=== PATIENT | male | born 2000 | race Caucasian/White ===

== ENCOUNTER → 2021-04-30 09:38 | Outpatient (BNVA) | payer OTHER, SELFPAY | PROVIDERS: Visit Provider Nurse Practitioner Family | DX: Z20.822 Contact with and (suspected) exposure to COVID-19 (principal) | CPT/HCPCS: 87635 ==

== ENCOUNTER → 2021-05-30 16:28 | Outpatient (BNVA) | payer OTHER, SELFPAY | PROVIDERS: Visit Provider Emergency Medicine | DX: Z20.822 Contact with and (suspected) exposure to COVID-19 (principal) | CPT/HCPCS: 87635 ==

== ENCOUNTER 2021-08-06 23:14 | Emergency (ER) | payer SELFPAY ==
[2021-08-06 23:19] VITALS: BP 115/80; PULSE 74; RESP 18; TEMP 36.5; O2SAT 100; BMI 21.6
--- NOTE | 2021-08-06 23:19 | W.ED.DENTAL ---
HPI - Dental/Oral General: Chief complaint: Dental/Oral Stated complaint: tooth pain Time Seen by Provider: 08/06/21 23:18 History of Present Illness: HPI Narrative: Patient comes in with left lower jaw pain. Patient reports that he has had problems with a molar in his left lower jaw about 1 year ago. Patient now has increased pain and discomfort and is looking for antibiotic for the treatment of infection. Patient reports he was treated last year in urgent care for similar complaint. Review of the record noted that cephalexin was used at that time. Patient states he tolerated it well. Patient denies any other concerns. Review of Systems General: Reports: 10 or more systems reviewed and unremarkable except in HPI and below ENMT: Reports: dental pain PFS ED PFSH: Social History Smoking and tobacco status: current every day smoker cigarettes Packs smoked per day: 0.25 Quit status (tobacco): not considering quitting Alcohol intake: never Physical Exam Const: COMMON NORMALS: no acute distress and patient oriented x3 GENERAL APPEARANCE: cooperative HENMT: COMMON NORMALS: normocephalic, TM's normal bilaterally and Normal external nose present HEAD & SCALP: normal to inspection and normocephalic NOSE: Normal external nose present TYMPANIC MEMBRANE: TM's normal bilaterally MOUTH: other (Poor dentition, erythema and swelling to the left lower second molar gingiv) THROAT: posterior oropharynx normal Eye: GENERAL EYE: appearance normal, both eyes and all related structures Neck/C-Spine: COMMON NORMALS: full ROM Lymph: LYMPHATIC: no lymphadenopathy noted Chest: COMMONS NORMALS: normal inspection of the chest Resp: COMMON NORMALS: normal respiratory effort EFFORT & INSPECTION: Yes able to speak in complete sentences Cardio: COMMON NORMALS: regular rate and regular rhythm RATE: regular rate RHYTHM: regular rhythm GI: COMMON NORMALS: non-tender Extremity: COMMON NORMALS: normal to inspection Neuro: COMMON NORMALS: patient oriented x3 and moves all extremities Psych: COMMON NORMALS: mental status grossly normal and cooperative Skin: COMMON NORMALS: no rashes or lesions noted GENERAL SKIN EXAM: no rashes or lesions noted Course Vital Signs: Vital signs: Vital Signs Temperature 97.7 F 08/06/21 23:19 Pulse Rate 74 08/06/21 23:19 Respiratory Rate 18 10/20/21 23:19 Blood Pressure 115/80 10/20/21 23:19 Pulse Oximetry 100 08/06/21 23:19 MDM - Dental/Oral MDM Narrative: Medical decision making narrative: Patient comes in today for complaints of left lower jaw pain. On exam patient has poor dentition. Examination of the area of pain we note a decayed tooth with partial loss of the crown. Erythema and swelling is noted to the gingiva. Differential diagnosis includes periapical abscess, retropharyngeal abscess, dental caries, odontalgia. No sign of significant illnesses noted. No obvious pharyngeal swelling or difficulty swallowing is noted. We will treat patient with cephalexin 500 twice a day for 7 days which worked well for him last year. Encourage good oral hygiene and follow-up with dentist. Patient reported understanding. Patient was 1 given 1 tablet of hydrocodone with acetaminophen for his pain in the emergency room. Discharge Plan Discharge Patient Disposition: Home Clinical Impression: Dental abscess Condition: Stable Prescriptions: New cephalexin 500 mg capsule 500 mg PO BID 7 Days Qty: 14 RF: 0 Discharge Orders: Discharge ED (Routine); Ordered 08/06/21 Ordered By: Trey Sandoval Discharge Diet: Usual diet Discharge Activity: Increase activity as tolerated Patient Instructions: Toothache (ED), Opioid Safety Activity Restrictions/Additional Instructions: Take antibiotic as directed. It will be cephalexin 500 mg 2 times a day for 7 days. Use acetaminophen and ibuprofen for breakthrough pain. Use ice packs for further pain relief. Follow-up with dentist for definitive care. Coding Level of Care Code ED [employer] Manager for Beth Awan
[2021-08-06 23:40] VITALS: BP 115/80; PULSE 74; RESP 18; O2SAT 100
== END 2021-08-06 23:41 | disposition home or self-care (01) ==
PROVIDERS: Emergency Provider Nurse Practitioner Family
DX: K04.7 Periapical abscess without sinus (principal); F17.210 Nicotine dependence, cigarettes, uncomplicated
CPT/HCPCS: 99281

== ENCOUNTER 2021-12-05 22:05 | Emergency (ER) | payer SELFPAY ==
[2021-12-05 22:08] VITALS: BP 126/79; PULSE 90; RESP 16; TEMP 36.6; O2SAT 97; BMI 22.3
--- NOTE | 2021-12-05 22:14 | ED_ITS ---
HPI - Dental/Oral General: Chief complaint: Dental/Oral Stated complaint: tooth pain Time Seen by Provider: 12/05/21 22:11 History of Present Illness: Patient is a 21-year-old male comes to the ED with dental pain. Pain started approximately 2 days ago. Dental pain is located in left lower mandible. He rates his pain currently a 5 out of 10 and he took a dose of Aleve before coming to the ED. He is currently in the process of trying to call to get set up with a dentist. He has had pain in this tooth before but has not been able to get into a dentist to get tooth pulled yet. Associated symptoms: Denies fever(s) or odynophagia Review of Systems Const: Denies: fever(s), chills or fatigue Eyes: Denies: change in vision or eye discomfort ENMT: Reports: dental pain; Denies: throat pain, odynophagia, nasal discharge or nasal congestion Card: Denies: chest pain, palpitations, edema, swelling of feet/ankles, dyspnea on exertion or orthopnea Resp: Denies: dyspnea, productive cough or non-productive cough GI: Denies: abdominal pain, nausea, vomiting, diarrhea, constipation or hematochezia : Denies: flank pain, difficulty urinating, dysuria or hematuria Musc: Denies: neck pain, back pain or extremity swelling Skin/Breast: Denies: rash or new lesions Neuro: Denies: headache(s) [facility] ED PFSH: Medical History No pertinent family history Surgical History No pertinent past surgical history Social History Smoking and tobacco status: current every day smoker cigarettes Packs smoked per day: 0.25 Quit status (tobacco): not considering quitting Alcohol intake: never Physical Exam Const: COMMON NORMALS: no acute distress, patient oriented x3 and alert GENERAL APPEARANCE: cooperative and comfortable HENMT: COMMON NORMALS: normocephalic HEAD & SCALP: normocephalic MOUTH: Normal oral and palatal mucosa present TEETH & GINGIVA: Yes abnormal tooth and associated gingiva lower left first molar tender and with associated gingival edema and Yes poor dentition THROAT: posterior oropharynx normal and uvula midline Neck/C-Spine: COMMON NORMALS: supple GENERAL: Yes normal visual inspection Resp: COMMON NORMALS: normal respiratory effort, No retractions, No use of accessory muscles and clear to auscultation bilaterally AUSCULTATION: clear to auscultation bilaterally Cardio: COMMON NORMALS: regular rate, regular rhythm, S1 normal heart sound present, S2 normal heart sound present, No gallops present (Cardio), No clicks present (Cardio), No murmurs present (Cardio) and Peripheral pulses 2+ throughout RATE: regular rate RHYTHM: regular rhythm HEART SOUNDS: S1 normal heart sound present and S2 normal heart sound present PERIPHERAL PULSES: Peripheral pulses 2+ throughout GI: COMMON NORMALS: Normal to inspection, nondistended, normoactive bowel sounds present, Soft to palpation, non-tender and no masses PALPATION: Yes Soft to palpation : COMMON NORMALS: Yes no CVA tenderness BLADDER/KIDNEY EXAM: Yes no CVA tenderness Back/Pelvis: COMMON NORMALS: no CVA tenderness Extremity: COMMON NORMALS: normal to inspection Neuro: COMMON NORMALS: patient oriented x3 and moves all extremities SENSORIUM/ORIENTATION: Yes alert Skin: GENERAL SKIN EXAM: dry skin Course Vital Signs: Vital signs: Vital Signs Temperature 97.9 F 12/05/21 22:08 Pulse Rate 90 12/05/21 22:08 Respiratory Rate 16 12/05/21 22:08 Blood Pressure 126/79 12/05/21 22:08 Pulse Oximetry 97 12/05/21 22:08 MDM - Dental/Oral Medical Decision Making Patient is a 21-year-old male comes to the ED with dental pain. Patient appears in no acute distress or pain. Vitals are stable. He was discharged home with a prescription for clindamycin and ibuprofen 800s for pain. Return to ED precautions given. Patient was told to follow-up with dentist as soon as possible for further management of dental pain. Patient understood and agreed with plan. Discharge Plan Discharge Patient Disposition: Home Clinical Impression: Pain due to dental caries Condition: Stable Prescriptions: New clindamycin HCl 150 mg capsule 300 mg PO Q6H 7 Days Qty: 56 0RF ibuprofen 800 mg tablet 800 mg PO Q8H PRN (Reason: pain) Qty: 20 0RF Discharge Orders: Discharge ED (Routine); Ordered 12/05/21 Ordered By: Win Roman Discharge Diet: Regular Discharge Activity: Resume usual activity Patient Instructions: Dental Caries (Cavities) Activity Restrictions/Additional Instructions: Contact dentist and set up appointment with them a soon as possible for further evaluation and treatment of dental pain. Take medications as prescribed. Return to the ER or your medical provider if condition worsens. Please read and understand discharge instructions. Thank you for choosing [facility] for your healthcare needs today. Please realize this is an emergency room and that we are providing you with a medical screening exam and this may not be complete and all inclusive of all the testing and or work up that you may need to determine your ailment or severity of your illness. It is very important that you follow up as instructed or that you return to the Emergency Department should you have concerns or if your condition changes or worsens in any way. Coding Level of Care Code ED Judicial Administrative Assistant for Beth Awan Exam Comprehensive
[2021-12-05] MEDS: clindamycin 150 mg Capsule 300 MG PO (22:25)
[2021-12-05] MEDS: acetaminophen 500 mg Tablet 1000 MG PO (22:25)
== END 2021-12-05 22:31 | disposition home or self-care (01) ==
PROVIDERS: Emergency Provider Physician Assistant
DX: K02.9 Dental caries, unspecified (principal); F17.210 Nicotine dependence, cigarettes, uncomplicated
CPT/HCPCS: 99283

== ENCOUNTER 2025-07-16 08:26 | Emergency (ER) | payer BC, MEDICAID, SELFPAY ==
[2025-07-16 08:33] VITALS: BP 124/71; PULSE 57; RESP 17; TEMP 36.4; O2SAT 96; BMI 22.7
--- NOTE | 2025-07-16 08:41 | ED_ITS ---
HPI - Nausea/Vomiting/Diarrhea 2 General: Chief complaint: Nausea/Vomiting/Diarrhea Stated complaint: Throwing up blood looks like coffee grounds Time Seen by Provider: 07/16/25 08:38 History of Present Illness: 25-year-old male presents emergency room complaining of an episode of hematemesis this morning. He does not have any recent illness. He also thought there was some emesis that looked like coffee grounds no hematochezia or melena. When he was 13 he had an ulcer he was treated with oral medications and seem to have resolved. He denies regular use of any NSAIDs or any other prescription medications. No lightheadedness or dizziness mild epigastric discomfort. Associated symtoms: Denies chest pain or dysuria Related Data Previous Rx's ?Medication ?Instructions ?Recorded pantoprazole 40 mg tablet,delayed 40 mg PO BID 30 days #60 tabs 07/16/25 release Allergies Allergy/AdvReac Type Severity Reaction Status Date / Time Penicillins Allergy Mild rash Verified 07/16/25 08:00 Review of Systems 2 Const: Denies: fever(s) or chills Card: Denies: chest pain Resp: Denies: dyspnea GI: Denies: abdominal pain : Denies: dysuria, urinary frequency or urinary urgency Musc: Denies: neck pain or back pain Skin/Breast: Denies: rash PFSH ED 2 PFSH: Medical History No pertinent family history Surgical History No pertinent past surgical history Social History Smoking and tobacco/nicotine status: never used tobacco/nicotine Quit status (tobacco/nicotine): not considering quitting Alcohol intake: never Substance/Drug Use: current Substance/Drug use frequency: few times a week Physical Exam 2 Const: GENERAL APPEARANCE: cooperative ORIENTATION/CONSCIOUSNESS: Yes awake, Yes oriented to person, Yes oriented to place and Yes oriented to time HENMT: COMMON NORMALS: normocephalic, atraumatic and hearing grossly normal bilaterally HEAD & SCALP: normocephalic and atraumatic Resp: COMMON NORMALS: normal respiratory effort, No retractions, No use of accessory muscles and clear to auscultation bilaterally AUSCULTATION: clear to auscultation bilaterally Cardio: COMMON NORMALS: regular rate, regular rhythm and No murmurs present (Cardio) RATE: regular rate RHYTHM: regular rhythm GI: COMMON NORMALS: Soft to palpation and No hepatosplenomegaly present A USCULTATION: Yes normoactive bowel sounds PALPATION: Yes Soft to palpation, No Tenderness to palpation present (GI), No Guarding due to palpation present (GI) and Yes No hepatosplenomegaly present Extremity: COMMON NORMALS: normal to inspection, capillary refill normal, no clubbing, cyanosis or edema, no calf tenderness and no pedal edema Neuro: SENSORIUM/ORIENTATION: Yes oriented to person, Yes oriented to place and Yes oriented to time Skin: COMMON NORMALS: no rashes or lesions noted GENERAL SKIN EXAM: no rashes or lesions noted Course 2 Vital Signs: Vital signs: Vital Signs Temperature 97.6 F 07/16/25 08:33 Pulse Rate 57 L 07/16/25 08:33 Respiratory Rate 17 07/16/25 08:33 Blood Pressure 124/71 07/16/25 08:33 Pulse Oximetry 96 07/16/25 08:33 Oxygen Delivery Me thod Room Air 07/16/25 08:33 MDM - Nausea/Vomiting/Diarrhea Medical Decision Making Advised patient to be admitted to observation admitted arrangements for a EGD to be done early this afternoon and possibly discharge after that he refused and wanted to be discharged home. Discussed with him that if he has further bloody emesis he should return to the emergency room. Will start him on a PPI. Discussed other different options he is insistent on leaving at this time encouraged to return if he has any changes symptoms. Medical Records I reviewed the patient's medical records. Lab Data I reviewed the patient's lab results. 07/16/25 08:43 07/16/25 09:24 Laboratory Results WBC 5.53 10^3/uL (3.29-11.43) 07/16/25 08:43 RBC 4.63 10^6/uL (3.85-5.65) 07/16/25 08:43 Hgb 14.30 g/dL (11.27-16.99) 07/16/25 08:43 Hct 42.1 % (37-53) 07/16/25 08:43 MCV 90.9 fl (82-101) 07/16/25 08:43 MCH 30.9 pg (27-33) 07/16/25 08:43 MCHC 34.0 g/dL (30-55) 07/16/25 08:43 RDW 12.0 % (12.1-15.1) L 07/16/25 08:43 Plt Count 229 10^3/cmm (157-399) 07/16/25 08:43 MPV 9.5 fL (7.4-10.4) 07/16/25 08:43 Neut % (Auto) 60.8 % 07/16/25 08:43 Lymph % (Auto) 23.5 % 07/16/25 08:43 Carbon % (Auto) 8.3 % 07/16/25 08:43 Eos % (Auto) 6.3 % 07/16/25 08:43 Baso % (Auto) 0.9 % 07/16/25 08:43 Neut # (Auto) 3.36 10^3/uL (1.8-7.7) 07/16/25 08:43 Lymph # (Auto) 1.3 10^3/uL (0.8-4.8) 07/16/25 08:43 Carbon # (Auto) 0.5 10^3/uL (0.2-0.9) 07/16/25 08:43 Eos # (Auto) 0.4 10^3/uL (0.0-0.8) 07/16/25 08:43 Baso # (Auto) 0.1 10^3/uL (0.0-0.1) 07/16/25 08:43 Nucleated RBC % (auto) 0 % 07/16/25 08:43 Nucleated RBCs # 0.0 /100WBC 07/16/25 08:43 Sodium 142 mmol/L (136-145) 07/16/25 09:24 Potassium 4.2 mmol/L (3.5-5.1) 07/16/25 09:24 Chloride 109 mmol/L (98-107) H 07/16/25 09:24 Carbon Dioxide 26 mmol/L (22-29) 07/16/25 09:24 Anion Gap 11.2 (5-19) 07/16/25 09:24 BUN 13 mg/dL (6-20) 07/16/25 09:24 Creatinine 0.8 mg/dL (0.7-1.2) 07/16/25 09:24 GFR Calculation 117.8 mL/min (90-130) 07/16/25 09:24 Glucose 103 mg/dL (65-115) 07/16/25 09:24 Calculated Osmolality 294 mOsm/kg (285-295) 07/16/25 09:24 Calcium 9.0 mg/dL (8.5-10.5) 07/16/25 09:24 Total Bilirubin 0.4 mg/dL (0.15-1.2) 07/16/25 09:24 AST 13 U/L (0-40) 07/16/25 09:24 ALT 10 U/L (0-41) 07/16/25 09:24 Alkaline Phosphatase 79 U/L (40-130) 07/16/25 09:24 Total Protein 6.9 g/dL (6.6-8.7) 07/16/25 09:24 Albumin 4.2 g/dL (3.5-5.2) 07/16/25 09:24 Globulin 2.7 g/dL (1.3-4.6) 07/16/25 09:24 Urine Color Yellow (Yellow) 07/16/25 08:49 Urine Appearance Clear (CLEAR) 07/16/25 08:49 Urine pH 7.5 (5-7) 07/16/25 08:49 Ur Specific [place] 1.006 (1.005-1.030) 07/16/25 08:49 Urine Protein Negative (Negative) 07/16/25 08:49 Urine Glucose (UA) Negative (Normal) 07/16/25 08:49 Urine Ketones Negative (Negative) 07/16/25 08:49 Urine Blood Negative (Negative) 07/16/25 08:49 Urine Nitrate Negative (Negative) 07/16/25 08:49 Urine Bilirubin Negative (Negative) 07/16/25 08:49 Urine Urobilinogen 0.2 mg/dL (Negative) 07/16/25 08:49 Ur Leukocyte Esterase Negative (Negative) 07/16/25 08:49 Amorphous Sediment Not Reportable 07/16/25 08:49 No radiology studies performed this visit Discharge Plan Discharge Patient Disposition: Home Clinical Impression: Acute upper GI bleed, Gastric ulcer Condition: Stable Prescriptions: New pantoprazole 40 mg tablet,delayed release (DR/EC) 40 mg PO BID 30 Days Qty: 60 0RF Rx Instructions: 1 p.o. twice daily x 10 days then 1 p.o. daily Discharge Orders: Discharge ED (Routine); Ordered 07/16/25 Ordered By: Matthew Arteaga Discharge Diet: As Directed Patient Instructions: Diet for Stomach Ulcers and Gastritis (ED), GERD (Gastroesophageal Reflux Disease) (ED), Opioid Safety, Pain Management, Patient Portal & Cathryn Instructions Activity Restrictions/Additional Instructions: Thank you [facility] choosing [facility] your healthcare needs today. It is very important that you follow up as instructed or that you return to the Emergency Department should you have concerns or if your condition changes or worsens in any way. Emergency department visits are focused on emergent conditions, in some cases you may require further evaluation on an outpatient basis. You were seen in the emergency room with complaints of vomiting blood. We had recommended that you be placed on observation and have a scope of your stomach early this afternoon. You have elected to leave the emergency room. Your welcome to return at any time. If you vomit more blood you should return immediately. Recommend you start on pantoprazole 1 tablet twice a day for 10 days then 1 daily. (Please note that included in your discharge packet is information concerning opioid safety and pain management. This information is given to all patients were discharged from the ER regardless of their discharge diagnosis or the medicines they usually take or are prescribed.) Print Language: Slovenian Coding Level of Care Code ED Barrel Raiser for Beth Awan
[2025-07-16 08:52] LABS: Add Urine Microscopic? NO
[2025-07-16 08:53] LABS: Hematocrit 42.1 % (37-53); Hemoglobin 14.30 g/dL (11.27-16.99); Mean Corpuscular HGB Conc 34.0 g/dL (30-55); Mean Corpuscular Hemoglobin 30.9 pg (27-33); Mean Corpuscular Volume 90.9 fl (82-101); Nucleated Red Blood Cells % 0 %; Platelet Count 229 10^3/cmm (157-399); Red Blood Count 4.63 10^6/uL (3.85-5.65); White Blood Count 5.53 10^3/uL (3.29-11.43)
[2025-07-16] MEDS: lidocaine 2% viscous 15 ML, aluminum-mag hydrox-simethicon 30 ML, sucralfate oral liq 1 GM PO (09:00)
[2025-07-16 09:04] LABS: Glucose Urine UA Negative (Normal); Nitrate Urine Negative (Negative); Specific Gravity, Urine 1.006 (1.005-1.030)
[2025-07-16 09:14] LABS: Charge for UA Resulting for Rev
[2025-07-16] MEDS: pantoprazole 40 mg SDV 80 MG IVP (09:18)
[2025-07-16 09:47] LABS: Alanine Aminotransferase 10 U/L (0-41); Albumin Level 4.2 g/dL (3.5-5.2); Alkaline Phosphatase 79 U/L (40-130); Anion Gap 11.2 (5-19); Aspartate Amino Transferase 13 U/L (0-40); Blood Urea Nitrogen 13 mg/dL (6-20); Calcium 9.0 mg/dL (8.5-10.5); Carbon Dioxide 26 mmol/L (22-29); Chloride 109 mmol/L (98-107); Creatinine Clr Calc Pharmacy 149.2492; Globulin 2.7 g/dL (1.3-4.6); Glucose 103 mg/dL (65-115); Osmolality Calculated 294 mOsm/kg (285-295); Potassium 4.2 mmol/L (3.5-5.1); Sodium 142 mmol/L (136-145); Total Protein 6.9 g/dL (6.6-8.7)
--- NOTE | 2025-07-16 10:42 | P.ANESASSM_ITS ---
Pre-Anesthetic Assessment Height/Weight: Height 5 ft 11 in Weight 163 lb Temp Pulse Resp BP Pulse Ox O2 Del Method 97.6 F 57 L 17 124/71 96 Room Air 07/16/25 08:33 07/16/25 08:33 07/16/25 08:33 07/16/25 08:33 07/16/25 08:33 07/16/25 08:33 Operation Date: 07/16/25 11:30 Proposed Procedures p EGD(Not Applicable) - Lukas Andino MD Anesthetic Plan Other: No prior issues with anesthesia Patient presents to the ER with hematic emesis. Patient has a prior history of stomach ulcers Labs reviewed and acceptable for procedure, hemoglobin 14.3 Patient denies any cardiac or pulmonary issues Takes no home meds at baseline METs greater than 4 Plan for GETA with RSI Medications/Allergies Home Medications ?Medication ?Instructions ?Recorded ?Confirmed ?Last Taken ?Type pantoprazole 40 mg tablet,delayed 40 mg PO BID 30 days #60 tabs 07/16/25 Unknown Rx release Allergies Allergy/AdvReac Type Severity Reaction Status Date / Time Penicillins Allergy Mild rash Verified 07/16/25 08:00 [facility] Anesthesia Medical History (Updated 07/16/25 @ 10:06 by Matthew Arteaga DO) No pertinent family history Surgical History No pertinent past surgical history Social History Smoking and tobacco/nicotine status: never used tobacco/nicotine Quit status (tobacco/nicotine): not considering quitting Alcohol intake: never Substance/Drug Use: current Substance/Drug use frequency: few times a week Data Anesthesia 07/16/25 08:43 07/16/25 09:24 Short CBC 07/16/25 Range/Units 08:43 WBC 5.53 (3.29-11.43) 10^3/uL Hgb 14.30 (11.27-16.99) g/dL Hct 42.1 (37-53) % MCV 90.9 (82-101) fl Plt Count 229 (157-399) 10^3/cmm Neut % (Auto) 60.8 % Neut # (Auto) 3.36 (1.8-7.7) 10^3/uL BMP 07/16/25 07/16/25 08:43 09:24 Sodium Cancelled 142 Potassium Cancelled 4.2 Chloride Cancelled 109 H Carbon Dioxide Cancelled 26 BUN Cancelled 13 Creatinine Cancelled 0.8 Glucose Cancelled 103 Calcium Cancelled 9.0 Liver Function 07/16/25 07/16/25 Range/Units 08:43 09:24 Total Bilirubin Cancelled 0.4 AST Cancelled 13 ALT Cancelled 10 Alkaline Phosphatase Cancelled 79 Albumin Cancelled 4.2 Urine 07/16/25 Range/Units 08:49 Urine Color Yellow (Yellow) Urine Appearance Clear (CLEAR) Urine pH 7.5 (5-7) Ur Specific [place] 1.006 (1.005-1.030) Urine Protein Negative (Negative) Urine Glucose (UA) Negative (Normal) Urine Ketones Negative (Negative) Urine Nitrate Negative (Negative) Urine Bilirubin Negative (Negative) Ur Leukocyte Esterase Negative (Negative)
== END 2025-07-16 10:28 | disposition home or self-care (01) ==
PROVIDERS: Emergency Provider Family Medicine
DX: K25.4 Chronic or unspecified gastric ulcer with hemorrhage (principal)
CPT/HCPCS: 36415; 80053; 81003; 85025; 99283; J2470; J7030; J9999